=== PATIENT | male | born 1960 | race African-American/Black ===

== ENCOUNTER → 2020-10-23 | Outpatient (CLI) | payer BC ==
--- NOTE | 2020-10-23 12:51 | CARD ---
MR#: [id number] Date of Study: 10/23/2020 Ordering Physician: LOLY MERCADO, Referring Physician: LOLY MERCADO, Tech: Juju Jasson, [facility] APPROVED REPORT EXAM: Two-dimensional and M-mode echocardiogram with Doppler and color Doppler. Other Information Quality : AverageHR: 74bpm INDICATION CAD RISK FACTORS Hypertension Hyperlipidemia 2D DIMENSIONS RVDd3.7 (2.9-3.5cm)Left Atrium(2D)3.5 (1.6-4.0cm) IVSd0.9 (0.7-1.1cm)Aortic Root(2D)3.6 (2.0-3.7cm) LVDd5.7 (3.9-5.9cm)LVOT Diameter2.2 (1.8-2.4cm) PWd1.0 (0.7-1.1cm)LVDs2.7 (2.5-4.0cm) FS (%) 53.4 %SV134.9 ml LVEF(%)71.8 (>50%) Aortic Valve AoV Peak Delmer.108.1cm/sAoV VTI19.6cm AO Peak GR.4.7mmHgLVOT Peak Delmer.108.0cm/s LVOT VTI 20.18cmAO Mean GR.3mmHg BERTA (VMAX)2.64xs8IVZ (VTI)4.07cm2 Mitral Valve MV E Hrdvqmsn85.8cm/sMV DECEL YRUO065sh MV A Myocqmpq73.2cm/sMV TVD46zx E/A Ratio1.1MVA (PHT)3.39cm2 TDI E/Lateral E'7.5E/Medial E'7.1 Pulmonary Valve PV Peak Iomrwhxt21.6cm/sPV Peak Grad.3mmHg Tricuspid Valve TR P. Epnwydoh702wg/sRAP AXZNHEMC0bsPl TR Peak Gr.27iwIfTWFZ37axZr Pulmonary Vein S1 Dswdsecf80.9cm/sD2 Gzfxspfx29.4cm/s PVa [id number] LEFT VENTRICLE The left ventricle is normal size. There is normal left ventricular wall thickness. The left ventricu lar systolic function is normal. The Ejection Fraction is 55-60%. There is normal LV segmental wall m otion. The left ventricular diastolic function and filling is normal for age. RIGHT VENTRICLE The right ventricle is normal size. There is normal right ventricular wall thickness. The right ventr icular systolic function is normal. ATRIA The left atrium size is normal. The right atrium is mildly dilated. The interatrial septum is intact with no evidence for an atrial septal defect or patent foramen ovale as noted on 2-D or Doppler imagi ng. AORTIC VALVE The aortic valve is normal in structure and function. Doppler and Color Flow revealed trace aortic re gurgitation. There is no significant aortic valvular stenosis. Calculated aortic valve area is 3.13 c m2 with maximum pressure gradient of 6 mmHg and mean pressure gradient of 4 mmHg. MITRAL VALVE The mitral valve is normal in structure and function. There is no evidence of mitral valve prolapse. There is no mitral valve stenosis. Doppler and Color-flow revealed trace mitral regurgitation. TRICUSPID VALVE The tricuspid valve is normal in structure and function. Doppler and Color Flow revealed trace tricus pid regurgitation with an estimated PAP of 31 mmHg. There is no tricuspid valve stenosis. PULMONIC VALVE The pulmonic valve is not well visualized. Doppler and Color Flow revealed trace pulmonic valvular re gurgitation. GREAT VESSELS The aortic root is normal in size. The IVC is normal in size and collapses >50% with inspiration. PERICARDIAL EFFUSION There is no evidence of significant pericardial effusion. Critical Notification Critical Value: No <Conclusion> The left ventricular systolic function is normal. The Ejection Fraction is 55-60%. There is normal LV segmental wall motion. Trace mitral regurgitation. Trace tricuspid regurgitation with an estimated PAP of 31 mmHg. There is no evidence of significant pericardial effusion. Signed by : Julio Vicente, Electronically Approved : 10/23/2020 12:51:05
== END ==
LOC: ECHO 07:51
PROVIDERS: ATTEND Internal Medicine Cardiovascular Disease
DX: I25.10 Atherosclerotic heart disease of native coronary artery without angina pectoris (principal)
CPT/HCPCS: 93306